=== PATIENT | female | born 1975 | race African-American/Black ===

== ENCOUNTER 2023-08-12 23:27 | Inpatient (IN) | payer MEDICAID ==
[~2023-08-12] VITALS: Ht 165.1 cm; Wt 63.5 kg
[2023-08-12 23:34] VITALS: BP_SYST 134; PULSE 73; RESP 18; TEMP 96.9; O2SAT 98
[2023-08-13 01:00] LABS: CALCIUM 8.9 mg/dL (8.4-11.0); CREATININE 0.99 mg/dL (0.55-1.30); POTASSIUM 3.4 mmol/L (3.5-5.1)
[2023-08-13 01:05] LABS: ALBUMIN 3.1 g/dL (3.4-4.8); BILIRUBIN,DIRECT 0.1 mg/dL (0.0-0.3); TOTAL BILIRUBIN 0.2 mg/dL (0.0-1.0); TOTAL PROTEIN, SERUM 6.3 g/dL (6.4-8.3)
[2023-08-13 01:37] LABS: BASOPHILS # (AUTO) 0.1 K/uL (0.0-0.2); BASOPHILS % (AUTO) 1.3 % (0.0-2.0); EOSINOPHILS # (AUTO) 0.1 K/uL (0.0-0.4); EOSINOPHILS % (AUTO) 2.2 % (0.0-4.0); LYMPHOCYTES # (AUTO) 3.8 K/uL (1.0-5.5); LYMPHOCYTES % (AUTO) 61.5 % (20.5-51.5); MEAN CORPUSCULAR HEMOGLOBIN 15 pg (27-31); MEAN CORPUSCULAR HGB CONC 27 % (32-36); MEAN CORPUSCULAR VOLUME 54 fL (79.0-98.0); MONOCYTES # (AUTO) 0.3 K/uL (0.0-1.0); MONOCYTES % (AUTO) 4.5 % (1.7-9.3); NEUTROPHILS # (AUTO) 1.9 K/uL (1.8-7.7); NEUTROPHILS % (AUTO) 30.5 % (40.0-70.0); PLATELET COUNT (AUTO) 134 K/uL (130-430); RED BLOOD CELL COUNT(AUTO) 3.81 MIL/uL (4.2-6.2); RED CELL DISTRIBUTION WIDTH 22.1 % (9.0-15.0); WHITE BLOOD COUNT (AUTO) 6.2 K/uL (4.8-10.8)
[2023-08-13 01:40] LABS: HEMATOCRIT 20.6 % (36-48); HEMOGLOBIN 5.6 g/dL (12.0-16.0)
[2023-08-13] MEDS ORDERED: MOM PO (01:51)
[2023-08-13] MEDS ORDERED: OLAN5TAB3 PO (01:51)
[2023-08-13] MEDS ORDERED: TRAZ-250 PO (01:51)
[2023-08-13] MEDS ORDERED: VIS50 PO (01:51)
[2023-08-13] MEDS ORDERED: ACET325T53 PO (01:51)
[2023-08-13] MEDS ORDERED: MG T1TAB4 PO (01:51)
[2023-08-13] MEDS ORDERED: ACETAMINOPHEN 325 MG TABLET PO PRN ×2 (13:45)
[2023-08-13] MEDS ORDERED: MILK OF MAGNESIA 30 ML UDC PO PRN (13:45)
[2023-08-13] MEDS: amLODIPine BESYLATE 10 MG TABLET PO ONE ×2 (14:42→18:45)
[2023-08-13] MEDS ORDERED: MAG-AL HYDROX/SIMETH 30 ML UDC PO PRN (14:45)
[2023-08-13] MEDS ORDERED: HALOPERIDOL LACTATE 5 MG/ML VIAL IM ONE (15:45)
[2023-08-13 19:36] LABS: HEMATOCRIT 28.7 % (36-48); HEMOGLOBIN 8.5 g/dL (12.0-16.0)
[2023-08-13] MEDS ORDERED: cloNIDine HCL 0.1 MG TABLET PO ONE (20:15)
[2023-08-13 20:45] VITALS: BP_SYST 177; PULSE 87; RESP 16; TEMP 98.3; O2SAT 100
[2023-08-13] MEDS ORDERED: OLANZapine 5 MG TABLET PO SCH (21:00)
[2023-08-13] MEDS ORDERED: traZODone HCL 50 MG TABLET (DESYREL) PO SCH (21:00)
[2023-08-14] MEDS ORDERED: amLODIPine BESYLATE 10 MG TABLET PO SCH (09:00)
== END 2023-08-13 22:05 | DRG 663 ==
LOC: SED 23:27 → SMU 08-13 01:30
PROVIDERS: ADMIT Family Medicine; ATTEND Family Medicine
PROC: 30233N1 Transfusion of Nonautologous Red Blood Cells into Peripheral Vein, Percutaneous Approach (ICD-10-PCS; principal; 2023-08-13)
DX: D62 Acute posthemorrhagic anemia (principal); R65.10 Systemic inflammatory response syndrome (SIRS) of non-infectious origin without acute organ dysfunction; E44.1 Mild protein-calorie malnutrition; F29 Unspecified psychosis not due to a substance or known physiological condition; D25.9 Leiomyoma of uterus, unspecified; F20.9 Schizophrenia, unspecified; N93.9 Abnormal uterine and vaginal bleeding, unspecified; I10 Essential (primary) hypertension; N92.0 Excessive and frequent menstruation with regular cycle; Z68.23 Body mass index [BMI] 23.0-23.9, adult
CPT/HCPCS: 36415; 71045; 76856-TC; 80048; 80076; 83051; 85014; 85025; 86886; 86900; 86901; 86920; 87081; 96372; 99285; P9021